=== PATIENT | female | born 2005 | race Two or more races ===

== ENCOUNTER 2024-05-18 20:42 | Emergency (ER) | payer OTHER ==
[~2024-05-18] VITALS: Ht 157.5 cm; Wt 99.4 kg
[2024-05-18 22:08] VITALS: BP 174/94; PULSE 65; RESP 17; TEMP 98.8; O2SAT 99
[2024-05-18] MEDS: KETOROLAC TROMETH 60MG/2ML VIAL IM ONE (22:42)
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
[2024-05-18] MEDS ORDERED: METH4PAK PO (23:02)
[2024-05-18] MEDS ORDERED: METH-1181 PO (23:02)
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
== END 2024-05-18 23:11 | disposition home or self-care (01) ==
LOC: ER 20:42
DX: S13.4XXA Sprain of ligaments of cervical spine, initial encounter (principal); S33.5XXA Sprain of ligaments of lumbar spine, initial encounter; V89.2XXA Person injured in unspecified motor-vehicle accident, traffic, initial encounter; Y93.89 Activity, other specified; Y92.410 Unspecified street and highway as the place of occurrence of the external cause; Y99.8 Other external cause status
CPT/HCPCS: 72040; 72100; 96372; 99284; J1885